=== PATIENT | female | born 1965 | race Caucasian/White ===

== ENCOUNTER 2018-02-13 05:36 | Inpatient (IN) | payer MEDICARE, MEDICAID ==
[2018-02-13] MEDS ORDERED: MOM 30ML SUSPENSION UDC PO (07:45)
[2018-02-13] MEDS ORDERED: MAALOX 30 ML SUSP *UDC PO (07:45)
[2018-02-13] MEDS ORDERED: ACETAMINOPHEN TAB 650MG DOSE (2X325MG) PO (07:45)
[2018-02-13] MEDS ORDERED: clonazePAM 0.5 MG TAB PO (11:45)
[2018-02-13] MEDS ORDERED: ALBUTEROL 90 MCG/ACT 8GM HFA INHALER INH (11:45)
[2018-02-13] MEDS ORDERED: POLYVINYL ALCOHOL OPHTH SOLN 15 ML(LIQUITEARS) OU (11:45)
[2018-02-13] MEDS: ASPIRIN 81 MG ENTERIC TAB PO (12:07)
[2018-02-13] MEDS: CitaloPRAM (CeleXA) 20 MG TAB PO (12:08)
[2018-02-13] MEDS: VITAMIN D 1,000 INTERNATIONAL UNITS TABLET PO (12:08)
[2018-02-13] MEDS: OMEPRAZOLE 20 MG CAP PO (12:13)
[2018-02-13] MEDS: MULTIVITAMINS/MINERALS THERAP 1 TAB PO (12:13)
[2018-02-13] MEDS: LEVOTHYROXINE 88MCG TABLET (0.088 MG) PO (12:13)
[2018-02-13] MEDS: VITAMIN E 400 INTERNATIONAL UNITS CAP PO (12:47)
[2018-02-13] MEDS: LISINOPRIL 40 MG TAB PO (12:47)
[2018-02-13] MEDS: hydroCHLOROthiazide 12.5 MG CAPSULE PO (12:47)
[2018-02-13] MEDS: BENZTROPINE 1 MG TAB PO ×2 (15:11→20:20)
[2018-02-13] MEDS: HALOPERIDOL 10 MG TAB PO (20:20)
[2018-02-13] MEDS: amLODIPine 5 MG TAB PO (20:20)
[2018-02-13] MEDS: FERROUS SULFATE 325MG TAB PO (20:20)
[2018-02-13] MEDS: DOCUSATE SODIUM 100 MG CAP PO (20:20)
[2018-02-13] MEDS: MIRALAX *UNIT DOSE* 17GM PACKET PO (20:20)
[2018-02-13] MEDS: SIMVASTATIN 20 MG TAB PO (20:20)
[2018-02-13] MEDS: OXcarbazepine 300 MG TAB PO (20:20)
[2018-02-13] MEDS: traZODone 50 MG TAB PO (20:20)
[2018-02-14] MEDS: LEVOTHYROXINE 88MCG TABLET (0.088 MG) PO (06:43)
[2018-02-14] MEDS: MIRALAX *UNIT DOSE* 17GM PACKET PO ×2 (08:54→21:10)
[2018-02-14] MEDS: OXcarbazepine 300 MG TAB PO ×2 (08:55→21:11)
[2018-02-14] MEDS: CitaloPRAM (CeleXA) 20 MG TAB PO (08:55)
[2018-02-14] MEDS: DOCUSATE SODIUM 100 MG CAP PO ×2 (08:55→21:11)
[2018-02-14] MEDS: hydroCHLOROthiazide 12.5 MG CAPSULE PO (08:55)
[2018-02-14] MEDS: VITAMIN E 400 INTERNATIONAL UNITS CAP PO (08:55)
[2018-02-14] MEDS: LISINOPRIL 40 MG TAB PO (08:55)
[2018-02-14] MEDS: MULTIVITAMINS/MINERALS THERAP 1 TAB PO (08:55)
[2018-02-14] MEDS: ASPIRIN 81 MG ENTERIC TAB PO (08:55)
[2018-02-14] MEDS: VITAMIN D 1,000 INTERNATIONAL UNITS TABLET PO (08:55)
[2018-02-14] MEDS: amLODIPine 5 MG TAB PO ×2 (08:56→21:12)
[2018-02-14] MEDS: BENZTROPINE 1 MG TAB PO ×3 (08:56→21:11)
[2018-02-14] MEDS: OMEPRAZOLE 20 MG CAP PO (08:56)
[2018-02-14 08:58] LABS: FREE THYROXINE INDEX 3.3 % (1.3-4.8); T UPTAKE 28 % (30-39); THYROXINE (T4) 11.9 UG/DL (4.5-12.0)
[2018-02-14] MEDS: clonazePAM 0.5 MG TAB PO ×2 (16:04→21:11)
[2018-02-14] MEDS: HALOPERIDOL 10 MG TAB PO ×2 (16:05→21:11)
[2018-02-14] MEDS: SIMVASTATIN 20 MG TAB PO (21:11)
[2018-02-14] MEDS: FERROUS SULFATE 325MG TAB PO (21:11)
[2018-02-15] MEDS: LEVOTHYROXINE 88MCG TABLET (0.088 MG) PO (06:22)
[2018-02-15] MEDS: DOCUSATE SODIUM 100 MG CAP PO ×2 (08:52→21:07)
[2018-02-15] MEDS: ASPIRIN 81 MG ENTERIC TAB PO (08:52)
[2018-02-15] MEDS: VITAMIN E 400 INTERNATIONAL UNITS CAP PO (08:52)
[2018-02-15] MEDS: BENZTROPINE 1 MG TAB PO ×3 (08:52→21:07)
[2018-02-15] MEDS: OXcarbazepine 300 MG TAB PO ×2 (08:52→21:07)
[2018-02-15] MEDS: CitaloPRAM (CeleXA) 20 MG TAB PO (08:52)
[2018-02-15] MEDS: OMEPRAZOLE 20 MG CAP PO (08:52)
[2018-02-15] MEDS: MIRALAX *UNIT DOSE* 17GM PACKET PO ×2 (08:52→21:07)
[2018-02-15] MEDS: clonazePAM 0.5 MG TAB PO ×3 (08:53→21:07)
[2018-02-15] MEDS: amLODIPine 5 MG TAB PO ×2 (08:53→21:07)
[2018-02-15] MEDS: hydroCHLOROthiazide 12.5 MG CAPSULE PO (08:53)
[2018-02-15] MEDS: MULTIVITAMINS/MINERALS THERAP 1 TAB PO (08:53)
[2018-02-15] MEDS: HALOPERIDOL 10 MG TAB PO ×3 (08:53→21:07)
[2018-02-15] MEDS: LISINOPRIL 40 MG TAB PO (08:53)
[2018-02-15] MEDS: VITAMIN D 1,000 INTERNATIONAL UNITS TABLET PO (08:53)
[2018-02-15] MEDS: FERROUS SULFATE 325MG TAB PO (21:07)
[2018-02-15] MEDS: QUEtiapine FUMARATE 100 MG TAB PO (21:08)
[2018-02-15] MEDS: SIMVASTATIN 20 MG TAB PO (21:08)
[2018-02-16] MEDS: LEVOTHYROXINE 88MCG TABLET (0.088 MG) PO (06:16)
[2018-02-16] MEDS: BENZTROPINE 1 MG TAB PO ×3 (09:14→20:41)
[2018-02-16] MEDS: DOCUSATE SODIUM 100 MG CAP PO ×2 (09:14→20:41)
[2018-02-16] MEDS: MIRALAX *UNIT DOSE* 17GM PACKET PO ×2 (09:14→20:41)
[2018-02-16] MEDS: CitaloPRAM (CeleXA) 20 MG TAB PO (09:14)
[2018-02-16] MEDS: HALOPERIDOL 10 MG TAB PO ×3 (09:14→20:41)
[2018-02-16] MEDS: OMEPRAZOLE 20 MG CAP PO (09:14)
[2018-02-16] MEDS: VITAMIN E 400 INTERNATIONAL UNITS CAP PO (09:14)
[2018-02-16] MEDS: MULTIVITAMINS/MINERALS THERAP 1 TAB PO (09:15)
[2018-02-16] MEDS: hydroCHLOROthiazide 12.5 MG CAPSULE PO (09:15)
[2018-02-16] MEDS: ASPIRIN 81 MG ENTERIC TAB PO (09:15)
[2018-02-16] MEDS: VITAMIN D 1,000 INTERNATIONAL UNITS TABLET PO (09:15)
[2018-02-16] MEDS: clonazePAM 0.5 MG TAB PO ×3 (09:15→20:41)
[2018-02-16] MEDS: LISINOPRIL 40 MG TAB PO (09:15)
[2018-02-16] MEDS: amLODIPine 5 MG TAB PO ×2 (09:15→20:41)
[2018-02-16] MEDS: OXcarbazepine 300 MG TAB PO ×2 (09:15→20:41)
[2018-02-16] MEDS: QUEtiapine FUMARATE 100 MG TAB PO (20:40)
[2018-02-16] MEDS: SIMVASTATIN 20 MG TAB PO (20:41)
[2018-02-16] MEDS: FERROUS SULFATE 325MG TAB PO (20:41)
[2018-02-17] MEDS: LEVOTHYROXINE 88MCG TABLET (0.088 MG) PO (06:26)
[2018-02-17] MEDS: MULTIVITAMINS/MINERALS THERAP 1 TAB PO (08:46)
[2018-02-17] MEDS: amLODIPine 5 MG TAB PO (08:46)
[2018-02-17] MEDS: clonazePAM 0.5 MG TAB PO (08:46)
[2018-02-17] MEDS: CitaloPRAM (CeleXA) 20 MG TAB PO (08:46)
[2018-02-17] MEDS: OXcarbazepine 300 MG TAB PO (08:46)
[2018-02-17] MEDS: VITAMIN E 400 INTERNATIONAL UNITS CAP PO (08:46)
[2018-02-17] MEDS: hydroCHLOROthiazide 12.5 MG CAPSULE PO (08:46)
[2018-02-17] MEDS: DOCUSATE SODIUM 100 MG CAP PO (08:46)
[2018-02-17] MEDS: LISINOPRIL 40 MG TAB PO (08:46)
[2018-02-17] MEDS: HALOPERIDOL 10 MG TAB PO (08:46)
[2018-02-17] MEDS: OMEPRAZOLE 20 MG CAP PO (08:46)
[2018-02-17] MEDS: BENZTROPINE 1 MG TAB PO (08:46)
[2018-02-17] MEDS: ASPIRIN 81 MG ENTERIC TAB PO (08:46)
[2018-02-17] MEDS: VITAMIN D 1,000 INTERNATIONAL UNITS TABLET PO (08:47)
[2018-02-17] MEDS: MIRALAX *UNIT DOSE* 17GM PACKET PO (08:51)
== END 2018-02-17 14:30 | disposition home or self-care (01) | DRG 885 ==
LOC: M ED 05:36 → M ED INP 07:37 → M PSY 08:50
DX: F20.0 Paranoid schizophrenia (principal); F41.9 Anxiety disorder, unspecified; F39 Unspecified mood [affective] disorder; Z73.1 Type A behavior pattern; Z79.899 Other long term (current) drug therapy; Z88.0 Allergy status to penicillin; Z88.8 Allergy status to other drugs, medicaments and biological substances; Z91.013 Allergy to seafood; E78.00 Pure hypercholesterolemia, unspecified; I10 Essential (primary) hypertension; G47.33 Obstructive sleep apnea (adult) (pediatric); E03.9 Hypothyroidism, unspecified; E11.9 Type 2 diabetes mellitus without complications